=== PATIENT | female | born 1995 | race American Indian/Alaskan Native ===

== ENCOUNTER 2020-03-12 00:42 | Emergency (ER) | payer SELFPAY ==
[2020-03-12 02:08] VITALS: BP 133/71
--- NOTE | 2020-03-12 03:12 | XRay Report ---
CHEST 1 VIEW INDICATION / CLINICAL INFORMATION: chest pain. COMPARISON: None available. FINDINGS: SUPPORT DEVICES: None. HEART / MEDIASTINUM: No significant abnormality. LUNGS / PLEURA: No significant pulmonary or pleural abnormality. No pneumothorax. ADDITIONAL FINDINGS: No significant additional findings. IMPRESSION: 1. No acute findings. Signer Name: Kyung Pascal MD Signed: 03/12/2020 3:08 AM Workstation Name: [id number]
[2020-03-12] MEDS ORDERED: ONDANSETRON 4 MG ODT TAB ONE (03:18)
[2020-03-12] MEDS ORDERED: ONDANSETRON 4 MG ODT TAB PO ONE (03:18)
[2020-03-12] MEDS ORDERED: ALUM-MAG HYDROXIDE-SIMETHICONE 200-200-20MG/5ML ORAL LIQD 30 ML PO ONE (03:22)
--- NOTE | 2020-03-12 03:27 | Emergency Department Report ---
ED General Adult HPI - General Chief complaint: Chest Pain Stated complaint: CHEST PAIN/POSS OD Time Seen by Provider: 03/12/20 03:17 Source: patient Mode of arrival: Ambulatory Limitations: No Limitations - History of Present Illness Initial comments: The patient was evaluated in the emergency department for symptoms described in the history of present illness. He/she was evaluated in the context of the global COVID-19 pandemic, which necessitated consideration that the patient might be at risk for infection with the virus that causes COVID-19. I nstitutional protocols and algorithms that pertain to the evaluation of patients at risk for COVID-19 are in a state of rapid change based on information released by regulatory bodies including the CDC and federal and state organizations. These policies and algorithms were followed during the patient's care in the emergency department. Please note that these policies, procedures and recommendations changed on a rapid basis. 24-year-old morbid obese -[place] female presents to the emergency room for acute chest pain with shortness of breath x1 hour prior to arrival. Patient denies any cough. Patient states that she has been taking pain relievers for her tailbone and is concerned that she is having chest pain that presents with burning. Patient states that she has had nausea and vomiting. Patient states that she has had constant pain in her tailbone for years but has gotten worse earlier this week. Patient reports a past medical history of falling on her tailbone as a child and has been suffering from pain since. Patient has a past medical history of asthma but no recent flareups. Patient does have a primary care provider but does not know their name. Patient last vomited around 1230. Patient reports that the chest pain has improved. Onset/Timin -: hour(s) (Prior to arrival) Location: chest Radiation: non-radiation Severity scale (0 -10): 1 Quality: burning Consistency: now resolved Improves with: none Worsens with: eating Associated Symptoms: nausea/vomiting, shortness of breath. denies: cough, diaph oresis, fever/chills, headaches, loss of appetite, weakness Treatments Prior to Arrival: none - Related Data Previous Rx's Medication Instructions Recorded Last Taken Type Omeprazole 20 mg PO QDAY #30 capsule. 03/12/20 Unknown Rx Ondansetron [Zofran Odt] 4 mg PO Q8HR #12 tab.brad 03/12/20 Unknown Rx Allergies Allergy/AdvReac Type Severity Reaction Status Date / Time shellfish derived Allergy Hives Verified 03/12/20 02:01 sea food Allergy Hives Uncoded 03/12/20 02:00 ED Review of Systems ROS: Stated complaint: CHEST PAIN/POSS OD Other details as noted in HPI Comment: All other systems reviewed and negative ED Past Medical Hx - Past Medical History Previous Medical History?: Yes Hx Asthma: Yes - Surgical History Past Surgical History?: No - Social History Smoking Status: Never Smoker Substance Use Type: None - Medications Home Medications: Home Medications Medication Instructions Recorded Confirmed Last Taken Type Omeprazole 20 mg PO QDAY #30 capsule. 03/12/20 Unknown Rx Ondansetron [Zofran Odt] 4 mg PO Q8HR #12 tab.rapdis 03/12/20 Unknown Rx ED Physical Exam - General Limitations: No Limitations General appearance: alert, in no apparent distress - Head Head exam: Present: atraumatic, normocephalic - Eye Eye exam: Present: normal appearance - ENT ENT exam: Present: mucous membranes moist - Neck Neck exam: Present: normal inspection - Respiratory Respiratory exam: Present: normal lung sounds bilaterally. Absent: respiratory distress - Cardiovascular Cardiovascular Exam: Present: regular rate, normal rhythm. Absent: systolic murmur, diastolic murmur, rubs, gallop - GI/Abdominal GI/Abdominal exam: Present: soft, normal bowel sounds - Extremities Exam Extremities exam: Present: normal inspection - Back Exam Back exam: Present: normal inspection - Neurological Exam Neurological exam: Present: alert, oriented X3 - Psychiatric Psychiatric exam: Present: normal affect, normal mood - Skin Skin exam: Present: warm, dry, intact, normal color. Absent: rash ED Course Vital Signs 03/12/20 02:02 Temperature 98.7 F Pulse Rate 93 H Respiratory 16 Rate Blood Pressure 133/71 O2 Sat by Pulse 97 Oximetry ED Medical Decision Making - Radiology Data Radiology results: report reviewed Patient: MICHAEL SON MR#: [id number] : 1995 Acct:[id number] Age/Sex: 24 / F ADM Date: 03/12/20 Loc: ED Attending Dr: Ordering Physician: ED DOCMD Date of Service: 03/12/20 Procedure(s): XR chest routine 2V Accession Number(s): [id number] cc: ED DOC, Fluoro Time In Minutes: CHEST 1 VIEW INDICATION / CLINICAL INFORMATION: chest pain. COMPARISON: None available. FINDINGS: SUPPORT DEVICES: None. HEART / MEDIASTINUM: No significant abnormality. LUNGS / PLEURA: No significant pulmonary or pleural abnormality. No pneumothorax. ADDITIONAL FINDINGS: No significant additional findings. IMPRESSION: 1. No acute findings. Signer Name: Kyung Pascal MD Signed: 03/12/2020 3:08 AM Workstation Name: [id number] Transcribed By: Dictated By: Kyung Pascal MD Electronically Authenticated By: Kyung Pascal MD Signed Date/Time: 03/12/20307 DD/ 7 TD/TT: - Medical Decision Making 24-year-old morbid obese -[place] female presents to the emergency room for acute chest pain with shortness of breath x1 hour prior to arrival. Patient denies any cough. Patient states that she has been taking pain relievers for her tailbone and is concerned that she is having chest pain that presents with burning. Patient states that she has had nausea and vomiting. Patient states that she has had constant pain in her tailbone for years but has gotten worse earlier this week. Patient reports a past medical history of falling on her tailbone as a child and has been suffering from pain since. Patient has a past medical history of asthma but no recent flareups. Patient does have a primary care provider but does not know their name. Patient last vomited around 1230. Patient reports that the chest pain has improved. Patient was given Zofran 4 mg ODT and Mylanta 30 mg p.o. Patient will be discharged home on omeprazole. And a referral to gastroenterology. Critical care attestation.: If time is entered above; I have spent that time in minutes in the direct care of this critically ill patient, excluding procedure time. ED Disposition Clinical Impression: Tail bone pain GERD (gastroesophageal reflux disease) Qualifiers: Esophagitis bleeding: without hemorrhage Disposition: - TO HOME OR SELFCARE Is pt being admited?: No Does the pt Need Aspirin: No Condition: Stable Instructions: Tailbone Injury, [id number], Gastroesophageal Reflux Disease, Adult, [id number] Additional Instructions: X-ray is negative for any acute findings. I recommend to take omeprazole and to follow-up with a systems development consultant and primary care provider. Prescriptions: Omeprazole 20 mg PO QDAY #30 capsule. Ondansetron [Zofran Odt] 4 mg PO Q8HR #12 tab.rapdis Referrals: [facility] [Provider Group] - 3-[address] [facility] [Provider Group] - 3-5 Days Forms: Work/School Release Form(ED)
== END 2020-03-12 05:58 | disposition home or self-care (01) ==
LOC: ED 00:42
DX: M53.3 Sacrococcygeal disorders, not elsewhere classified (principal); K21.9 Gastro-esophageal reflux disease without esophagitis; J45.909 Unspecified asthma, uncomplicated; E66.01 Morbid (severe) obesity due to excess calories; Z91.013 Allergy to seafood; Z79.899 Other long term (current) drug therapy; Z68.41 Body mass index [BMI] 40.0-44.9, adult
CPT/HCPCS: 71046; 93005; Q0162